=== PATIENT | female | born 1985 ===

== ENCOUNTER → 2018-04-03 | Outpatient (CLI) | payer BC | LOC: LAB 09:05 | PROVIDERS: ATTEND Student in an Organized Health Care Education/Training Program | DX: O20.0 Threatened abortion (principal) | CPT/HCPCS: 36415; 84702 ==

== ENCOUNTER → 2018-04-03 | Outpatient (CLI) | payer BC | LOC: LAB 08:13 | PROVIDERS: ATTEND Student in an Organized Health Care Education/Training Program | DX: Z02.9 Encounter for administrative examinations, unspecified (principal) ==

== ENCOUNTER → 2018-04-05 | Outpatient (CLI) | payer BC | LOC: LAB 09:06 | PROVIDERS: ATTEND Student in an Organized Health Care Education/Training Program | DX: O20.0 Threatened abortion (principal) | CPT/HCPCS: 36415; 84702 ==

== ENCOUNTER → 2018-04-17 | Outpatient (CLI) | payer BC ==
[~2018-04-17] MED LIST: PREN-127 PO
[2018-04-17 13:14] LABS: PLATELET COUNT, AUTOMATED 277 K/uL (150-450)
== END ==
LOC: LAB 12:31
PROVIDERS: ATTEND Student in an Organized Health Care Education/Training Program
DX: Z34.91 Encounter for supervision of normal pregnancy, unspecified, first trimester (principal)
CPT/HCPCS: 36415; 81001; 85025; 86592; 86703; 86762; 86850; 86900; 86901; 87088; 87340

== ENCOUNTER → 2018-05-05 | Outpatient (CLI) | payer BC ==
[~2018-05-05] MED LIST changes: +ONDA4TAB97 PO
== END ==
LOC: LAB 08:49
PROVIDERS: ATTEND Student in an Organized Health Care Education/Training Program
DX: Z34.91 Encounter for supervision of normal pregnancy, unspecified, first trimester (principal)
CPT/HCPCS: 87491; 87591

== ENCOUNTER → 2018-07-14 | Outpatient (CLI) | payer BC | LOC: LAB 08:34 | PROVIDERS: ATTEND Student in an Organized Health Care Education/Training Program | DX: O10.919 Unspecified pre-existing hypertension complicating pregnancy, unspecified trimester (principal); R00.2 Palpitations | CPT/HCPCS: 36415; 82040; 82247; 82310; 82374; 82435; 82565; 82947; 84075; 84132; 84155; 84156; 84295; 84443; 84450; 84460; 84520; 85027 ==

== ENCOUNTER → 2018-07-21 | Outpatient (CLI) | payer BC ==
--- NOTE | 2018-07-24 15:57 | RT HOLTER TEST ---
FACILITY: [facility] - [place] PATIENT NAME: POPPY MOJICA : [id number] MR: [id number] V: [id number] EXAM DATE: ORDERING PHYSICIAN: NAUN LANIER TECHNOLOGIST: DEANDRA Hook-up date: 2018-07-21 13:17:00 Duration: 47:55:00 Test Indications: SOB, PALPITATIONS Medications: N/A [id number] QRS complexes 163 Ventricular ectopics which represent <1 % of total QRS comp. 28 Supraventricular ectopics which represent <1 % of total QRS comp. * Paced QRS complexes which represent % of total QRS comp. VENTRICULAR ECTOPY 154 Isolated 0 Bigeminal Cycles 3 Couplets 1 Runs 3 Beats in Runs 3 Beats LONGEST at 192 BPM at 20:41:58 2018-07-22 3 Beats FASTEST at 192 BPM at 20:41:58 2018-07-22 SUPRAVENTRICULAR ECTOPY 17 Isolated 3 Couplets 1 Runs 5 Beats in Runs 5 Beats LONGEST at 186 BPM at 19:43:44 2018-07-22 5 Beats FASTEST at 186 BPM at 19:43:44 2018-07-22 HEART RATES 58 MIN at 06:11:20 2018-07-23 96 AVG 169 MAX at 19:43:45 2018-07-22 LONGEST RR 1.368 secs at 07:36:29 2018-07-23 S-T LEVELS Channel 1 -12.800 mm MIN at 13:17:00 2018-07-21 -12.800 mm MAX at 13:17:00 2018-07-21 Channel 2 -12.800 mm MIN at 13:17:00 2018-07-21 -12.800 mm MAX at 13:17:00 2018-07-21 Channel 3 -12.800 mm MIN at 13:17:00 2018-07-21 -12.800 mm MAX at 13:17:00 2018-07-21 The patient had about 13 symptomatic events. She had 5 of those events while there was ventricular e ctopy (VE). One of those events correlated with an isolate supraventricular ectopy (SVE), and another correlated with a 5 beat run of SVE at 186 be ats per minute (bpm). Finally, 4 of the events correlated solely with sinus tachycardia with the highest rate at 125 bpm. Overall, there were rare VE and SVE and most were asymptomatic. The averate heart rate was 96 beats per minute. Confirmed by RAJNI VICK ([id number]) on 07/24/2018 3:56:45 PM Referred By: Overread By: RAJNI VICK
== END ==
LOC: RESP 08:16
PROVIDERS: ATTEND Student in an Organized Health Care Education/Training Program
DX: R00.2 Palpitations (principal); O26.899 Other specified pregnancy related conditions, unspecified trimester
CPT/HCPCS: 93225; 93226

== ENCOUNTER → 2018-08-06 | Outpatient (CLI) | payer BC ==
--- NOTE | 2018-08-06 14:53 | RADIOLOGY IMAGING REPORT ---
FACILITY: [facility] PATIENT NAME: Kimberly Gallo : 1985 MR: [id number] V: [id number] EXAM DATE: ORDERING PHYSICIAN: NAUN LANIER TECHNOLOGIST: Location: [facility] - [place] Patient: Kimberly Gallo : 1985 Visit/Account:[id number] Date of Sevice: 08/06/2018 EXAMINATION: Ultrasound transabdominal OB > 14 weeks with anatomic evaluation HISTORY: 20 week anatomical survey COMPARISON: None. TECHNIQUE: Transabdominal imaging was performed for assessment of the fetus and maternal pelvic structures. T ransvaginal imaging was not performed. FINDINGS: Placenta: Posterior without previa. Uterus: Gravid, otherwise normal Cervix: Long and closed. Maternal Ovaries: Not visualized. Maternal and other adnexa findings: Not evaluated Intrauterine gestations: One. presentation: Variable heart rate: Normal and regular at 160 bpm Amniotic fluid index: 10.01 cm Largest amniotic fluid pocket: 4.41 cm Gestational Parameters: BPD: 5.22 cm 21 weeks/ six days, 65% HC: 19.61 cm one weeks/ six days, 57% AC: 17.36 cm 22 weeks/ three days, 71% FL: 3.7 cm 21 weeks/ six days, 53% Average ultrasound age (AUA): 22 weeks/zero days, DOT 12/10/2018 Estimated gestational age by DOT: 21 weeks/three days, DOT 12/14/2018 Estimated weight (EFW): 470 grams +/- 69 grams EFW for DOT: 76 percentile Anatomic Survey: Intracranial structures, 4-chamber heart, stomach, kidneys, urinary bladder, spine, 3-vessel cord and cord insertion are unremarkable. Two upper and two lower extremities visualized. Cardiac ventricula r outflow tracts, palate and lips are unremarkable in appearance. IMPRESSION: Single viable fetus in variable presentation with an estimated gestational age by measur ements of 22 weeks and zero days. Estimated gestational age by LMP is 21 weeks and three days. Estimated weight is 470 g equivalent to the 76th percentile Report Dictated By: Nancie Carbajal MD at 08/06/2018 2:46 PM Report E-Signed By: Nancie Carbajal MD at 08/06/2018 2:49 PM WSN:[email or web address]
== END ==
LOC: RAD 10:22
PROVIDERS: ATTEND Student in an Organized Health Care Education/Training Program
DX: Z36.89 Encounter for other specified antenatal screening (principal)

== ENCOUNTER → 2018-09-24 | Outpatient (CLI) | payer BC ==
[~2018-09-24] MED LIST changes: +ASPI-1471 PO; +DIPH0.5S2 IM; +OMEP-218 PO
[2018-09-24 11:19] LABS: PLATELET COUNT, AUTOMATED 159 K/uL (150-450)
== END ==
LOC: LAB 08:08
PROVIDERS: ATTEND Obstetrics & Gynecology
DX: Z34.82 Encounter for supervision of other normal pregnancy, second trimester (principal)
CPT/HCPCS: 36415; 82950; 85025

== ENCOUNTER 2018-10-18 12:26 | Outpatient (CLI) | payer BC ==
[~2018-10-18] VITALS: Ht 162.6 cm; Wt 77.6 kg
[2018-10-18] MEDS ORDERED: LR(*) 1000 ML BAG 1,000 ML IV PRN (12:34)
[2018-10-18 12:52] VITALS: BP 140/87
[2018-10-18 12:56] VITALS: Ht 162.6 cm; Wt 77.6 kg
[2018-10-18 13:42] LABS: PLATELET COUNT, AUTOMATED 158 K/uL (150-450)
== END 2018-10-18 15:20 | disposition home or self-care (01) ==
LOC: UNDOADMOB 12:26 → OB 12:26 → L&D 12:26 → OB 12:26 → L&D 15:20 → UNDODISOB 15:20 → EDSTATUS 10-19 14:30
PROVIDERS: ATTEND Obstetrics & Gynecology
DX: O26.893 Other specified pregnancy related conditions, third trimester (principal); Z3A.31 31 weeks gestation of pregnancy; R10.13 Epigastric pain; H53.9 Unspecified visual disturbance
CPT/HCPCS: 36415; 59025; 80305; 82040; 82247; 82310; 82374; 82435; 82565; 82570; 82947; 84075; 84132; 84155; 84156; 84295; 84450; 84460; 84520; 85025; 99213; G0378; G0379

== ENCOUNTER → 2018-10-19 | Outpatient (CLI) | payer BC ==
[2018-10-18 12:56] VITALS: BMI 29.4
== END ==
LOC: LAB 15:50
PROVIDERS: ATTEND Advanced Practice Midwife
DX: O10.919 Unspecified pre-existing hypertension complicating pregnancy, unspecified trimester (principal); O09.93 Supervision of high risk pregnancy, unspecified, third trimester
CPT/HCPCS: 84156

== ENCOUNTER → 2018-10-29 | Outpatient (CLI) | payer BC ==
[2018-10-18 12:56] VITALS: BMI 29.4
--- NOTE | 2018-10-29 11:24 | RADIOLOGY IMAGING REPORT ---
FACILITY: [facility] PATIENT NAME: Kimberly Gallo : 1985 MR: [id number] V: [id number] EXAM DATE: ORDERING PHYSICIAN: LYNN WEBSTER TECHNOLOGIST: Location: [facility] - [place] Patient: Kimberly Gallo : 1985 Visit/Account:[id number] Date of Sevice: 10/29/2018 EXAMINATION: Ultrasound transabdominal OB > 14 weeks with anatomic evaluation HISTORY: Hypertension COMPARISON: August 06, 2018 TECHNIQUE: Transabdominal imaging was performed for assessment of the fetus and maternal pelvic structures. T ransvaginal imaging was not performed. FINDINGS: Placenta: Posterior without previa. Uterus: Gravid, otherwise normal Cervix: Long and closed. Maternal Ovaries: Not visualized. Maternal and other adnexa findings: Negative. Intrauterine gestations: One. presentation: Cephalic heart rate: Normal and regular at 140 bpm Amniotic fluid index: 19.69 cm Largest amniotic fluid pocket: Six cm Gestational Parameters: BPD: 8.75 cm 35 weeks/ three days, 91% HC: 32.16 cm 36 weeks/ three days, 84% AC: 30.09 cm 34 weeks/ one days, 71% FL: 6.46 cm 33 weeks/ three days, 36% Average ultrasound age (AUA): 34 weeks/six days, DOT 12/04/2018 Estimated gestational age by LMP: 33 weeks/three days, DOT 12/14/2018 Estimated weight (EFW): 2375 grams +/- 347 grams EFW for LMP: 66 percentile Anatomic Survey: Anatomic survey not performed IMPRESSION: Single viable fetus in cephalic presentation with an estimated gestational age by measur ements of 34 weeks and six days. Estimated gestational age by LMP is 33 weeks and three days. Estimated weight is 2375 g equivalent to the 66th percentile Report Dictated By: Nancie Carbajal MD at 10/29/2018 11:12 AM Report E-Signed By: Nancie Carbajal MD at 10/29/2018 11:16 AM WSN:[email or web address]
== END ==
LOC: RAD 10:19
PROVIDERS: ATTEND Student in an Organized Health Care Education/Training Program
DX: O10.919 Unspecified pre-existing hypertension complicating pregnancy, unspecified trimester (principal)